=== PATIENT | male | born 1965 | race Caucasian/White ===

== ENCOUNTER 2017-09-10 18:19 | Inpatient (IN) | payer OTHER ==
[~2017-09-10] VITALS: Ht 188 cm; Wt 86.0 kg
[2017-09-10] VITALS (12 sets, daily range): BP systolic 110–124; BP diastolic 68–79; PULSE 76–95; RESP 16; TEMP 98–98.4; O2SAT 97–100
[2017-09-10] MEDS ORDERED: HEPARIN SODIUM - IV 10,000 UNITS/10 ML VIAL IV PUSH STA (18:28)
[2017-09-10] MEDS ORDERED: SODIUM CHLOR 0.9% 1000 ML INJ 1,000 ML IV ONE (18:28)
[2017-09-10] MEDS ORDERED: SODIUM CHLORIDE 0.9% FLUSH 10 ML FLUSH IVF PRN (18:30)
--- NOTE | 2017-09-10 18:35 | RADRPT ---
EXAM DATE/TIME: 09/10/2017 18:23 [facility] COMPARISON: No previous studies available for comparison. INDICATIONS : Stemi alert; syncopal episode. MEDICAL HISTORY : Unobtainable. SURGICAL HISTORY : Unobtainable. ENCOUNTER: Initial ACUITY: 1 day PAIN SCORE: 0/10 LOCATION: Bilateral chest FINDINGS: A single view of the chest demonstrates the lungs to be symmetrically aerated without evidence of mas s, infiltrate or effusion. The cardiomediastinal contours are unremarkable. Osseous structures are intact. CONCLUSION: No acute disease. Bart Martines MD on September 10, 2017 at 18:33 Board Certified Radiologist. This report was verified electronically.
[2017-09-10] MEDS ORDERED: ASPIRIN 81 MG CHEW TAB ONE (18:42)
[2017-09-10] MEDS ORDERED: HEPARIN SODIUM - IV 10,000 UNITS/10 ML VIAL ONE (18:42)
--- NOTE | 2017-09-10 18:45 | PD ---
HPI Chief Complaint: STEMI Alert Time Seen by Provider: 18:28 Travel History International Travel<30 days: No Contact w/Intl Traveler<30days: No Traveled to known affect area: No History of Present Illness HPI 52-year-old male with no significant past medical history, presents here via EMS as a STEMI alert. The patient apparently was at a restaurant when he began feeling lightheaded and passed out. The patient reportedly was unconscious for roughly 40 seconds. There is no reported seizure activity. He was incontinent to urine. The patient has no cardiac history. He had no complaints of chest pain. He states that he sensed himself getting lightheaded and the next thing he remembers was waking up. The patient was awake and alert and appropriate upon waking. There is no reported postictal state. When paramedics arrived at the scene, they did a 12-lead which showed ST elevation in the inferior leads. They did a V4 are which was negative for acute ST elevation. STEMI alert was called in the field. We activated the STEMI alert prior to their arrival. PFSH Past Medical History Diminished Hearing: No Past Surgical History Appendectomy: Yes Social History Alcohol Use: Yes (DAILY) Tobacco Use: No Substance Use: No Allergies-Medications (Allergen,Severity, Reaction): Coded Allergies: No Known Allergies (Unverified , 09/10/17) Reported Meds & Prescriptions Reported Meds & Active Scripts Active No Active Prescriptions or Reported Medications Review of Systems Except as stated in HPI: all other systems reviewed are Neg General / Constitutional: No: Fever, Chills HENT: No: Headaches, Neck Pain Cardiovascular: No: Chest Pain or Discomfort Respiratory: No: Cough, Shortness of Breath Gastrointestinal: No: Nausea, Vomiting, Abdominal Pain Genitourinary: Positive: Incontinence Musculoskeletal: No: Weakness, Pain Neurologic: Positive: Syncope, Incontinence, No: Weakness, Dizziness, Headache , Change in Mentation, Seizures Psychiatric: No: Substance Abuse Physical Exam Narrative GENERAL: Well-developed well-nourished male in no acute respiratory distress. She does appear to have sunburn to his chest abdomen legs. SKIN: Focused skin assessment warm/dry. HEAD: Atraumatic. Normocephalic. EYES: Pupils equal and round. No scleral icterus. No injection or drainage. ENT: No nasal bleeding or discharge. Mucous membranes pink and moist. NECK: Trachea midline. No JVD. Supple. CARDIOVASCULAR: Regular rate and rhythm. No murmur appreciated. RESPIRATORY: No accessory muscle use. Clear to auscultation. Breath sounds equal bilaterally. GASTROINTESTINAL: Abdomen soft, non-tender, nondistended. Hepatic and splenic margins not palpable. MUSCULOSKELETAL: No obvious deformities. No clubbing. No cyanosis. No edema. NEUROLOGICAL: Awake and alert. No obvious cranial nerve deficits. Motor grossly within normal limits. Normal speech. Data Data Last Documented VS Vital Signs Date Time Temp Pulse Resp B/P (MAP) Pulse Ox O2 Delivery O2 Flow Rate FiO2 09/10/17 18:24 98.0 84 16 116/69 (85) 99 Orders Orders Troponin I (09/10/17 18:) Ckmb (Isoenzyme) Profile (09/10/17 18:) Complete Blood Count With Diff (09/10/17:) I-Stat Profile (09/10/17 18:) I-Stat Creatinine (09/10/17:) Calcium (09/10/17:) Magnesium (Mg) (09/10/17 18:28) Prothrombin Time / Inr (Pt) (09/10/17 18:28) Act Partial Throm Time (Ptt) (09/10/17 18:28) B-Type Natriuretic Peptide (09/10/17 18:) Chest, Single Ap (09/10/17 18:28) Electrocardiogram (09/10/17 18:28) Oxygen Administration (09/10/17 18:28) Iv Access Insert/Monitor (09/10/17:) Oximetry (09/10/17 18:28) Sodium Chlor 0.9% 1000 Ml Inj (Ns 1000 M (09/10/17 18:28) Sodium Chloride 0.9% Flush (Ns Flush) (09/10/17 18:30) Heparin Inj (Heparin Inj) (09/10/17 18:28) Admit Order (Ed Use Only) (09/10/17 18:31) Drug Screen, Random Urine (09/10/17 18:32) MDM Medical Decision Making Medical Screen Exam Complete: Yes Emergency Medical Condition: Yes Differential Diagnosis STEMI versus syncope versus dehydration versus metabolic derangement Narrative Course 52-year-old male with no significant past medical history, presents here after having a syncopal episode. Patient was made a STEMI alert in the field after EKG showed ST elevation in the inferior leads. Evaluation of the twelve-lead from EMS clearly shows ST elevation in leads II, III and aVF. Repeat EKG still shows slight ST elevation however it is improved from the field. The patient's has been discussed with Dr. King, on-call electrical service technician for stimulated. He is on his way in to take the patient to the [facility] Officer. Patient has been given aspirin and nitroglycerin in the field. He is also been given heparin bolus here in the emergency department. Diagnosis Primary Impression: STEMI alert Additional Impression: Syncopal episode Admitting Information Admitting Physician Requests: Admit Scripts No Active Prescriptions or Reported Meds Leopoldo Torres MD Sep 10, 2017 18:45
[2017-09-10 19:11] LABS: AUTOMATED NEUTROPHIL # 7.7 TH/MM3 (1.8-7.7); BASOPHIL # 0.1 TH/MM3 (0-0.2); BASOPHIL % 0.6 % (0.0-2.0); EOSINOPHIL # 0.1 TH/MM3 (0-0.4); HEMATOCRIT 44.2 % (39.0-51.0); HEMOGLOBIN 15.1 GM/DL (13.0-17.0); LYMPH % 13.6 % (9.0-44.0); LYMPHOCYTE # 1.3 TH/MM3 (1.0-4.8); MEAN CELL VOLUME 91.1 FL (80.0-100.0); MEAN CORPUSCULAR HEMOGLOBIN 31.1 PG (27.0-34.0); MEAN CORPUSCULAR HGB CONC 34.1 % (32.0-36.0); MONO % 6.9 % (0.0-8.0); MONOCYTE # 0.7 TH/MM3 (0-0.9); NEUT % 77.9 % (16.0-70.0); PLATELET COUNT 231 TH/MM3 (150-450); RED BLOOD COUNT 4.85 MIL/MM3 (4.50-5.90); WHITE BLOOD COUNT 9.9 TH/MM3 (4.0-11.0)
[2017-09-10] MEDS ORDERED: MIDAZOLAM HCL 2 MG/2 ML VIAL ONE (19:11)
[2017-09-10 19:15] LABS: CALCIUM 8.2 MG/DL (8.5-10.1)
[2017-09-10 19:24] LABS: PROTHROMBIN TIME - PATIENT 10.4 SEC (9.8-11.6); TROPONIN I LESS THAN 0.02 NG/ML (0.02-0.05)
[2017-09-10] MEDS ORDERED: BACITRACIN OINT 0.9 GM PKT TOP ONE (20:00)
[2017-09-10] MEDS ORDERED: SODIUM CHLORIDE 0.9% FLUSH 10 ML FLUSH IV FLUSH PRN (20:00)
[2017-09-10] MEDS ORDERED: MISC INFORMATION XX ONE (20:00)
--- NOTE | 2017-09-10 20:12 | MR ---
cc: Manfred King MD, Arthur W MD DATE: 09/10/2017 PROCEDURES: Left heart catheterization, left ventriculography and coronary angiography INDICATIONS: STEMI, dehydration, syncope bladder incontinence. PROCEDURAL STATEMENT: The patient was brought to the cardiac catheterization laboratory, prepped and draped in the usual sterile fashion. Ten mL of 1% lidocaine was used to locally anesthetize the right common femoral artery. 4 Irish sheath placed in right common femoral artery . A 4-Irish JL4 and JR4 catheters were used to perform left and right coronary arteriography and left ventriculography. FINDINGS: LV pressure is 90/8/9, ejection fraction 60%. No wall motion abnormality identified. Right coronary artery dominant. There is slight kinking in the proximal segment at the tip of the catheter. I do think this is a stenosis. I think it is just a kinked point at the catheter tip peaks at systole. The left main coronary artery has no significant disease angiographically. Left circumflex vessel has no significant disease angiographically. There is a small ramus intermedius vessel, reference vessel diameter of 0.5 mm in diameter. No significant disease angiographically. First obtuse marginal vessel has a high takeoff. It is 1.5 to 2 mm reference vessel diameter. No significant disease angiographically. The second obtuse marginal vessel comes off the mid AV groove. Left circumflex vessel is a large vessel, reference vessel diameter 4 mm, has a proximal bifurcation with no significant disease. The left main coronary artery is a large vessel, reference vessel diameter probably 7 mm. The proximal LAD has no significant disease. Proximal LAD is a large vessel, reference vessel diameter probably 6-7 mm, gives off a large first diagonal vessel with a reference vessel diameter of 3.5 mm. Beyond the first diagonal artery the LAD has a reference vessel diameter of 3.5 mm, so definitely has a stepdown from the proximal segment but appears to be a normal anatomical tapering. I do not see any appreciable plaque. The LAD is transapical. The LAD appears to have possibly some mild stenosis at the bifurcation with the first diagonal artery. It may be 10-20% versus normal vessel tapering. CONCLUSION: 1. Possible mild mid left anterior descending disease of the bifurcation with a large diagonal vessel. This may actually be just normal vessel tapering, although it does appear to be slightly stenotic compared to the more distal segment of the left anterior descending, so therefore may be a possible 20% stenosis area. Otherwise, no significant disease in a right dominant system as detailed above. 2. Hyperdynamic left ventricular systolic function, ejection fraction 65 to 70%. 3. Low left ventricular pressure is 90/8/9 consistent with dehydration. 4. Recommend fluid resuscitation. Admit overnight for observation on telemetry. 5. Further recommendations pending trends and hemodynamics, response to IV fluid challenge and telemetry findings. MD TIFFANIE Walker/ , 07:27 PM , 08:11 PM
[2017-09-10] MEDS: SODIUM CHLORIDE 0.9% FLUSH 10 ML FLUSH IV FLUSH SCH (21:00)
--- NOTE | 2017-09-10 22:32 | RADRPT ---
EXAM DATE/TIME: 09/10/2017 21:22 [facility] COMPARISON: No previous studies available for comparison. INDICATIONS : Syncope. MEDICAL HISTORY : Syncope. Possible Seizure. SURGICAL HISTORY : Appendectomy. ENCOUNTER: Initial ACUITY: 1 day PAIN SCORE: 0/10 LOCATION: Bilateral neck PEAK SYSTOLIC VELOCITIES (cm/sec): ICA/CCA RATIO: Right: 0.7 Left: 0.6 ICA: Right: 83 Left: 67 CCA: Right: 116 Left: 115 ECA: Right: 78 Left: 64 VERTEBRAL: Right: 58 antegrade Left: 60 antegrade Elevated flow velocities and ICA/CCA ratios have been found to correlate with increased degrees of vessel stenosis, calculated as percentage of diameter relative to a normal segment of distal ICA/CCA FINDINGS: RIGHT CAROTID: No significant stenosis is visualized. The waveforms are within normal limits. LEFT CAROTID: No significant stenosis is visualized. The waveforms are within normal limits. VERTEBRAL ARTERIES: Antegrade flow is seen in both vertebral arteries. MISCELLANEOUS: None. CONCLUSION: No evidence of flow-limiting carotid stenosis. Bart Martines MD on September 10, 2017 at 22:30 Board Certified Radiologist. This report was verified electronically.
[2017-09-11] VITALS (24 sets, daily range): BP systolic 102–119; BP diastolic 70–75; PULSE 64–82; RESP 16–17; TEMP 97.9–98.1; O2SAT 97–98
--- NOTE | 2017-09-11 07:42 | CATHPROC ---
[facility] HIS Report Study Information Study Number Admission Scheduled Start Study Start [id number] Sep 10 2017 6:33PM 09/10/2017 Sep 10 2017 6:54PM [facility] Catheter[facility] Admit Source Facility Department Emergency department [facility] - [employer] Physician and Clinical Staff Initial Manfred Medrano Boring And Filling Machine Operator Segundo Sargent RN Boring And Filling Machine Operator Jania Irvin RN Other cathlab, cathlab Recorder Gilberto Ortiz RCIS(BS) Scrub Zack Mcginnis RT(R) Procedures Performed Procedure Location (Site) Vessel Name Coronary Angiograms LCA Left Coronary Coronary Angiograms RCA Right Coronary LV Gram-hand inj. LV LV Ventricle Equipment Time Acid Tender Description Size Mfg Part Number Used/Scraped [id number] *[id number] *[id number] 18:56 [employer] PACK, CCL CUSTOM * Used *[id number] 18:56 Gorb PACER PEN, SKIN DUAL W/ RULER * Used *[id number] 19:31 [employer] MEDICAL 30 BARNEY INDEFLATOR Used *[id number] 19:31 ODEC SHEATH, FR6.5 PRELUDE 11CM FR 6.5 038ACT Used *[id number] 18:56 ODEC WIRE, 3MMJ .035 180CM 180CM Used *[id number] 18:56 NAMIC MANIFOLD, 4 PORT * Used *[id number] 18:56 NYCOMED OMNIPAQUE, 350 MG, 150ML 150ML [id number] 18:56 [employer] MEDICAL BLANKET,WARM AIR CCL * Used *[id number] 18:56 [email or web address] MEDICAL SHEATH, FR4 TERUMO (10CM) FR 4 Used *[id number] History: Allergies Allergy Reaction No Known Allergies History: Risk Factors Family History of Hypertension Dyslipidemia Previous AR Previous Heart Failure Premature CAD No No No No No Prior Valve Prior PCI Prior CABG Surgery No No No Cerebrovascular Peripheral Artery Chronic Lung On Dialysis Diabetes Disease Disease Disease No No No No No History: Symptoms/Diagnosis Selection Items Syncope History: Stress Tests Stress or Imaging Studies Performed No History: Other Current Smoker No Labs Hgb (g/dl) Hct (%) 11.60-17.00 35.00-51.00 15.0 44 Glucose (mg/dl) Creatinine (mg/dl) 74.00-106.00 0.50-1.30 163 1.1 Na (meq/l) K (meq/l) Cl (meq/l) 136.00-145.00 3.50-5.10 98.00-107.00 135 4.3 100 CPK-MB (ng/ML) 0.50-3.60 Not Drawn Medication Medication Total Dose (Bolus/Oral) Medication Total Dosage/Unit 1% XYLOCAINE 20 mL FENTANYL 12.5 mcg VERSED 1 mg Medications (Bolus/Oral) Medication Time Given Dosage/Unit Administered By Reason 1% XYLOCAINE 09/10/2017 7:12:36 PM 20 mL Manfred King 20 mL 1% XYLOCAINE given in lab by Manfred King in Right Groin via Subcutaneous. VERSED 09/10/2017 7:12:42 PM 1 mg Jania Irvin 1 mg VERSED given in lab by Jania Irvin RN in Left Antecubital via Peripheral IV. Ordered by Manfred Garcia. FENTANYL 09/10/2017 7:13:01 PM 12.5 mcg Jania Irvin 12.5 mcg FENTANYL given in lab by Jania Irvin RN in Left Antecubital via Peripheral IV. Ordered by Manfred King. Medication (Drip) Medication Time Given Dosage/Unit Concentration/Unit Diluent (ml) Solution IV Solutions 09/10/2017 6:58:35 PM 0 mL (IV) 500 NaCl .9 Patient arrived on IV Solutions in Left Antecubital via Peripheral IV. Pump/Drip Flow = 20 ml/hr usin g NaCl .9. Initial Case Assessment Cardiovascular HR Rhythm NIBP Chest Pain 86 nsr 122/76 0 Edema Present Skin color Skin None Normal Warm Dry Circulatory - Right Pulses Dorsalis Pedis Femoral 3 3 Scale (0,1,2,3,4,d) Circulatory - Left Pulses Dorsalis Pedis Femoral 3 3 Scale (0,1,2,3,4,d) Neurological State Oriented to time-place- Alert Moves all extremities person Respiration - General Respiration Rate SpO2 (%) (B/min) 15 91 Final Case Assessment Cardiovascular HR Rhythm NIBP Chest Pain 80 nsr 112/71 0 Edema Present Skin color Skin None Normal Warm Dry Circulatory - Right Pulses Dorsalis Pedis Femoral 3 3 Scale (0,1,2,3,4,d) Circulatory - Left Pulses Dorsalis Pedis Femoral 3 3 Scale (0,1,2,3,4,d) Neurological State Oriented to time-place- Alert Moves all extremities person Respiration - General Respiration Rate SpO2 (%) (B/min) 15 100 Chronological Log Time Study Chronological Log 18:51:20 Emergency Room notified that [employer] is ready. 18:58:20 Patient arrived via Bed. 18:58:21 Patient Name, D.O.B, / Armband Verified By R.N. 18:58:22 Consent signed by the physician and the patient and verified by the [employer] staff. 18:58:22 Pre-op and post- op instructions given; patient acknowledges understanding of instructions. 18:58:23 Verbal Stimulation=2 Physical Stimulation=2 Airway=2 Respiration=2 TOTAL=8. (0=absent, 1=li mited, 2=present) 18:58:24 Presedation assessment performed by [employer] RN. 18:58:31 Patient has been NPO for More than 6Hrs. 18:58:31 Skin Breakdown- none per patient 18:58:33 Rosette Prominences Protected 18:58:34 A # 20 IV was noted in the Antecubital (left). Grade = 0 18:58:34 A # 20 IV was noted in the Forearm (left). Grade = 0 18:58:35 Patient arrived on IV Solutions in Left Antecubital via Peripheral IV. Pump/Drip Flow = 20 ml/hr using NaCl .9. 18:58:36 History and physical on the chart or being dictated. 19:02:30 MD arrived. Vitals capture started with the following parameters, Patient=Adult, Interval=5 min, Initial Pr ntdqgu=872 mmHg, 19:04:08 Deflation Rate=5 mmHg, Cuff placed on Right Ankle 19:04:50 HR=86 bpm, RHWJ=024/76 mmhg, SpO2=90.0 %, Resp=15 B/min, Pain=0, Judson=10, [place]=2 19:05:13 Reference ECG taken Assessment: Initial Case, HR=86 BPM, Rhythm=nsr, VRBW=583/76 mmhg, Chest Pain=0, Edema=None, Co jerad=Normal, Skin = Warm, Dry Right Pulses: Braulio Ped=3, Femoral=3 19:05:25 Left Pulses: Braulio Ped=3, Femoral=3 Neurological: State=Alert, Ox3, TURNER Respiration: Resp=15 B/min, SpO2=91 % 19:05:26 Bilateral groins prepped with 2% chlorhexidine, and draped after a 3 minute waiting time. 19:06:01 Contrast Scanned 19:06:02 Immediate Presedation assesment performed by physician. 19:08:22 Pressure channel 1 zeroed. 19:09:43 HR=83 bpm, GOGJ=669/72 mmhg, WhD2=793.0 %, Resp=11 B/min, Pain=0, Judson=10, Sheffield=2 Time Out. Correct patient, correct procedure, correct physician, power injector not loaded with contrast with surgical 19:10:20 team present. Time Out Concurred by MD and individual staff in procedure. 19:10:25 Case Start 19:10:25 Verbal Stimulation=2 Physical Stimulation=2 Airway=2 Respiration=2 TOTAL=8. (0=absent, 1=li mited, 2=present) 19:12:36 20 mL 1% XYLOCAINE given in lab by Manfred King in Right Groin via Subcutaneous. 19:12:42 1 mg VERSED given in lab by Jania Irvin RN in Left Antecubital via Peripheral IV. Orde red by Manfred King. 19:12:55 Access site was Right Femoral Artery. 19:12:59 A SHEATH, FR4 TERUMO (10CM) FR 4 was advanced into the Fem Art (right) using the Percutaneo us technique. 12.5 mcg FENTANYL given in lab by Jania Irvin, ERNST in Left Antecubital via Peripheral IV. Or dered by Christine, 19:13:01 Manfred. 19:13:11 Activated Clotting Time Drawn A JR 4.0 INFINITI CATHETER FR 4 was advanced over a wire. OMNIPAQUE, 350 MG, 150ML 150ML was us ed for 19:13:20 injections. Recorded Pressure: LV, HR=88, Condition=Condition 1 19:14:21 (Left Ventricle) LV 117/-1/16 19:14:31 The LV was manually injected with 10 cc's and visualized. OMNIPAQUE, 350 MG, 150ML 150ML us ed. Recorded Pressure: LV, Ao, HR=86, Condition=Condition 1 19:14:36 (Left Ventricle) LV 105/-2/13, (Aorta) Ao 98/57/75 19:14:46 HR=84 bpm, SHCD=133/70 mmhg, SpO2=99.0 %, Resp=15 B/min, Pain=0, Judson=10, Sheffield=2 19:15:02 The RCA was injected and visualized at various angles. OMNIPAQUE, 350 MG, 150ML 150ML used . 19:15:48 Catheter was removed A JL 4.0 INFINITI CATHETER FR 4 was advanced over a wire. OMNIPAQUE, 350 MG, 150ML 150ML was us ed for 19:15:48 injections. 19:16:41 The LCA was injected and visualized at various angles. OMNIPAQUE, 350 MG, 150ML 150ML used . Recorded Pressure: Ao, HR=85, Condition=Condition 1 19:17:19 (Aorta) Ao 92/58/72 19:17:30 Catheter was removed 19:18:53 ACT (Normal Range 90-180) = 173 19:19:00 Case End Assessment: Final Case, HR=80 BPM, Rhythm=nsr, DVOM=617/71 mmhg, Chest Pain=0, Edema=None, [place] r=Normal, Skin = Warm, Dry Right Pulses: Braulio Ped=3, Femoral=3 19:19:15 Left Pulses: Braulio Ped=3, Femoral=3 Neurological: State=Alert, Ox3, TURNER Respiration: Resp=15 B/min, YkM2=446 % 19:19:43 HR=81 bpm, URPQ=309/71 mmhg, SpO2=99.0 %, Resp=15 B/min, Pain=0, Judson=10, Sheffield=2 19:22:32 Sheath removed; pressure applied to access site. 19:24:42 HR=90 bpm, TFMW=441/75 mmhg, SpO2=97.0 %, Resp=19 B/min, Pain=0, Judson=10, Sheffield=2 19:29:45 HR=83 bpm, XNYY=143/69 mmhg, SpO2=99.0 %, Resp=8 B/min 19:34:40 HR=90 bpm, VTXR=896/80 mmhg, SpO2=97.0 %, Resp=16 B/min, Pain=0, Judson=10, Sheffield=2 19:39:41 HR=86 bpm, EJYN=055/76 mmhg, SpO2=99.0 %, Resp=31 B/min, Pain=0, Judson=10, Sheffield=2 19:40:40 Sterile dressing applied to site 19:45:10 Patient moved to stretcher 19:45:50 Waiting on bed assignment End Study - Contrast Media Used In Study Contrast Total Opened (mL) Total Used (mL) Total Wasted (mL) Omnipaque 30 30 0 End Study - Maximum Contrast Load Max Contrast Load (mL) 386.4 End Study - Radiation Exposure Fluoro Time (minutes) 0.8 End Study - Sheaths Sheaths Pulled By Sheath Hold Time (min) Zack Mcginnis 18 End Study - Patient Disposition Complications Transferred To Interventional Outcome No Telemetry Bed No attempt made
--- NOTE | 2017-09-11 09:22 | MB ---
cc: Manfred King MD DATE: 09/10/2017 HISTORY OF PRESENT ILLNESS: Molina is a very pleasant 52-year-old gentleman with no significant past medical history. He was eating dinner tonight in [place] at a restaurant, felt lightheaded, had a syncopal event, was unconscious for 40 seconds approximately per report. Had bladder incontinence. No associated prodromal symptoms such as chest pain, shortness of breath, fever, chills, cough, GI/ bleeding, PND, orthopnea. He denied syncope. Currently denies chest pain or shortness of breath. EKG in the field showed concave up ST elevation in the inferior leads with no reciprocal changes. A 12-lead EKG in the ER shows a similar morphology, with slight change of the slope of the ST segments in lead 3 and aVF, more suggestive of injury pattern. Again, no reciprocal changes. PAST MEDICAL HISTORY: As per history of present illness. He does have a history of an appendectomy. SOCIAL HISTORY: He drinks alcohol daily. He denies tobacco use. ALLERGIES: NONE. MEDICATIONS: He received aspirin 324 chewable in the ER, heparin bolus drip. PHYSICAL EXAMINATION: VITAL SIGNS: Blood pressure 119/73, pulse 95, respiratory rate 16, temperature 98.0, sat is 100% on room air. GENERAL: He is alert, oriented x 3, in no acute distress. NECK: Supple. No JVD. No bruit. CARDIOVASCULAR: S1, S2. No murmurs, rubs or gallops. LUNGS: Clear to auscultation bilaterally. ABDOMEN: Soft, nontender, nondistended, with positive bowel sounds. EXTREMITIES: No extremity edema. IMAGING STUDIES: Chest x-ray shows no acute disease. STUDY: The EKG in the field shows a 1-[address] segment elevation in leads 2, 3 and aVF, concave up, with baseline wander. No reciprocal changes. A 12-lead EKG in the ER shows normal sinus rhythm at 79 beats per minute, slightly concave up. ST elevation in lead 2, more of a flat injury angulation in lead 3 aVF, not quite tombstoning about [address] elevation. Again, no reciprocal changes. LABORATORY DATA: Labs have been drawn, but results are pending at time of dictation. HE HAS THE FOLLOWING DIAGNOSES: 1. Questionable STEMI. 2. Syncope. 3. Bladder incontinence. 4. History of appendectomy. I agree with Dr. Torres that given his age and risk factors, that STEMI-Alert should be called with emergent left heart catheterization. Further recommendations based on the details of his heart catheterization. A STEMI-Alert, has been called and procedure is being done under emergent conditions. MD TIFFANIE Walker/SETH , 07:08 PM , 07:29 PM
[2017-09-11] MEDS ORDERED: IOHEXOL 350 MG/ML 50 ML BTL (for Cath Lab) OTHER ONE (09:42)
--- NOTE | 2017-09-11 13:06 | RADRPT ---
EXAM DATE/TIME: 09/11/2017 12:16 [facility] COMPARISON: No previous studies available for comparison. INDICATIONS : Pain. Neck pain. MEDICAL HISTORY : None. SURGICAL HISTORY : Appendectomy. ENCOUNTER: Initial ACUITY: 1 day PAIN SCORE: 2/10 LOCATION: Paraspinal TECHNIQUE: Multiplanar, multisequence MRI examination of the cervical spine was performed. FINDINGS: VERTEBRAE: Normal vertebral body height. Diffuse disc desiccation. Homogeneous marrow signal. ALIGNMENT: No evidence of subluxation. CORD: Normal configuration and signal. POST FOSSA: The cerebellar tonsils are normal in position. C2-C3: The thecal sac has a normal configuration. There is no evidence of disc herniation or spinal canal s tenosis. The neural foramina are patent bilaterally. C3-C4: The thecal sac has a normal configuration. There is no evidence of disc herniation or spinal canal s tenosis. The neural foramina are patent bilaterally. C4-C5: The thecal sac has a normal configuration. There is no evidence of disc herniation or spinal canal s tenosis. Minimal uncovertebral spurring. The neural foramina are patent bilaterally. C5-C6: Minimal broad-based protrusion abuts the thecal sac. No canal stenosis. Minimal uncovertebral spurrin g. The neural foramina are patent bilaterally. C6-C7: The thecal sac has a normal configuration. There is no evidence of disc herniation or spinal canal s tenosis. The neural foramina are patent bilaterally. C7-T1: The thecal sac has a normal configuration. There is no evidence of disc herniation or spinal canal s tenosis. The neural foramina are patent bilaterally. CONCLUSION: 1. Minimal broad-based protrusion C5-6. No canal stenosis. 2. Mild degenerative changes. Ramos Morris MD on September 11, 2017 at 13:01 Board Certified Radiologist. This report was verified electronically.
--- NOTE | 2017-09-11 13:28 | RADRPT ---
EXAM DATE/TIME: 09/11/2017 12:16 [place] COMPARISON: No previous studies available for comparison. INDICATIONS : Syncope. CONTRAST: 17 cc Omniscan (gadodiamide) IV MEDICAL HISTORY : None. SURGICAL HISTORY : Appendectomy. ENCOUNTER: Subsequent ACUITY: 2 day PAIN SCORE: 2/10 LOCATION: neck TECHNIQUE: Multiplanar, multisequence MRI of the brain was performed both prior to and following the administrat ion of paramagnetic contrast. FINDINGS: There is no restricted diffusion to suggest an acute ischemic event. Minimal periventricular white m atter changes are noted. Ventricular size is appropriate. There is no parenchymal hemorrhage, acute infarction or mass lesion. There are no extra-axial fluid collections appreciated Posterior fossa is unremarkable midline fourth ventricle Following intravenous administration of gadolinium there is no abnormal contrast enhancement. CONCLUSION: Negative for an acute process. Riki Kimball MD FACR on September 11, 2017 at 13:25 Board Certified Radiologist. This report was verified electronically.
--- NOTE | 2017-09-11 13:44 | MB ---
cc: Galen Ortiz MD DATE: 09/11/2017 HISTORY OF PRESENT ILLNESS: He is a 52-year-old seen in neurological consultation with syncope versus seizure. The patient came in yesterday. He was in a restaurant with family and felt lightheaded and just did not feel well, told family about it and then he passed out. When he passed out, he also lost bladder control. There was no seizure activity, though the reports that he was making an unusual noise when he was out. The patient has no medical history, he had drank 3 or 4 beers before this had happened. He is here visiting. He does not take any medications and does not see any doctors on a regular basis. 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 The neurological exam was completely normal. Reflexes 2+. He did have a left fourth and fifth finger injury and loss when he was 4 years old. ASSESSMENT: Syncope versus seizure. He was a STEMI alert and went to heart catheterization. He was incontinent, which is unusual and there was some unusual noise described by the , also raising the possibility of seizure, but the fact that he had the warnings of lightheadedness before is also more in favor of syncope. RECOMMENDATIONS: MRI brain obtained, no results yet. The patient has had some neck pain, right-sided and MRI cervical spine was unremarkable. EEG completed and I will review this. I will follow the neurological course. Thank you for asking us to assist in his care. MD ISAI Loja/MARY , 01:16 PM , 01:43 PM
--- NOTE | 2017-09-11 13:46 | PD.CARD.PN ---
Subjective Subjective Remarks alert in nad Objective Medications Current Medications Medications (Trade) Dose Ordered Sig/Farideh Route Start Time Stop Time Status Last Admin (NS Flush) 2 ml BID IV FLUSH 09/10/17 21:00 09/10/17 21:00 (NS Flush) 2 ml UNSCH PRN IV FLUSH 09/10/17 20:00 Vital Signs / I&O Vital Signs Date Time Temp Pulse Resp B/P (MAP) Pulse Ox O2 Delivery O2 Flow Rate FiO2 09/11/17 08:00 98.0 77 17 102/72 (82) 97 09/11/17 02:30 76 16 106/71 (83) 98 09/11/17 02:00 64 09/11/17 01:30 76 16 114/70 (85) 97 09/11/17 00:30 76 16 108/71 (83) 98 09/11/17 00:00 68 09/11/17 00:00 70 09/10/17 23:30 80 16 110/70 (83) 97 09/10/17 23:00 76 09/10/17 22:30 82 16 117/71 (86) 97 09/10/17 22:00 82 09/10/17 22:00 80 16 120/75 (90) 97 09/10/17 21:30 76 16 124/76 (92) 98 09/10/17 21:00 82 09/10/17 21:00 88 16 117/79 (92) 98 09/10/17 20:45 81 16 114/68 (83) 98 09/10/17 20:45 98.4 89 16 121/73 (89) 99 09/10/17 20:30 86 16 123/79 (94) 98 09/10/17 20:15 84 16 121/73 (89) 98 09/10/17 20:13 82 09/10/17 18:49 95 16 119/73 (88) 100 Room Air 09/10/17 18:24 98.0 84 16 116/69 (85) 99 I/O 09/10/17 09/10/17 09/10/17 09/11/17 09/11/17 09/11/17 06:59 14:59 22:59 06:59 14:59 22:59 Intake Total 240 ml Output Total 1750 ml Balance -1510 ml Intake Oral 240 ml Output Urine Total 1750 ml Physical Exam GENERAL: SKIN: Warm and dry. HEAD: Normocephalic. EYES: No scleral icterus. No injection or drainage. NECK: Supple, trachea midline. No JVD or lymphadenopathy. CARDIOVASCULAR: Regular rate and rhythm without murmurs, gallops, or rubs. RESPIRATORY: Breath sounds equal bilaterally. No accessory muscle use. GASTROINTESTINAL: Abdomen soft, non-tender, nondistended. MUSCULOSKELETAL: No cyanosis, or edema. BACK: Nontender without obvious deformity. No CVA tenderness. Laboratory Laboratory Tests Test 09/10/17 18:20 09/11/17 11:25 White Blood Count 9.9 TH/MM3 Red Blood Count 4.85 MIL/MM3 Hemoglobin 15.1 GM/DL Bedside Hemoglobin 15.0 G/DL Hematocrit 44.2 % Bedside Hematocrit 44.0 % Mean Corpuscular Volume 91.1 FL Mean Corpuscular Hemoglobin 31.1 PG Mean Corpuscular Hemoglobin Concent 34.1 % Red Cell Distribution Width 13.0 % Platelet Count 231 TH/MM3 Mean Platelet Volume 7.0 FL Neutrophils (%) (Auto) 77.9 % Lymphocytes (%) (Auto) 13.6 % Monocytes (%) (Auto) 6.9 % Eosinophils (%) (Auto) 1.0 % Basophils (%) (Auto) 0.6 % Neutrophils # (Auto) 7.7 TH/MM3 Lymphocytes # (Auto) 1.3 TH/MM3 Monocytes # (Auto) 0.7 TH/MM3 Eosinophils # (Auto) 0.1 TH/MM3 Basophils # (Auto) 0.1 TH/MM3 CBC Comment DIFF FINAL Differential Comment Prothrombin Time 10.4 SEC Prothromb Time International Ratio 1.0 RATIO Activated Partial Thromboplast Time 22.4 SEC Bedside Sodium 135 MMOL/L Bedside Potassium 4.3 MMOL/L Bedside Chloride 100 MMOL/L Bedside Blood Urea Nitrogen 15 MG/DL Bedside Creatinine 1.1 MG/DL Bedside Glucose 163 MG/DL Calcium Level 8.2 MG/DL Magnesium Level 2.0 MG/DL Total Creatine Kinase 93 U/L Troponin I LESS THAN 0.02 NG/ML B-Type Natriuretic Peptide 4 PG/ML D-Dimer Quantitative (PE/DVT) 0.31 MG/L FEU Vitamin B12 Level 161 PG/ML 25-Hydroxy Vitamin D Total 7.4 ng/ML Imaging Last 24 hours Impressions Cervical Spine MRI 09/11/17 0000 Signed Impressions: Service Date/Time: Monday, September 11, 2017 12:16 - CONCLUSION: 1. Minimal broad-based protrusion C5-6. No canal stenosis. 2. Mild degenerative changes. Ramos Morris MD Brain MRI 09/11/17 0000 Signed Impressions: Service Date/Time: Monday, September 11, 2017 12:16 - CONCLUSION: Negative for an acute process. Riki Kimball MD FACR Chest X-Ray 09/10/178 Signed Impressions: Service Date/Time: August 18:23 - CONCLUSION: No acute disease. Bart Martines MD Assessment and Plan Problem List: (1) Syncope ICD Codes: R55 - Syncope and collapse (2) Dehydration ICD Codes: E86.0 - Dehydration Assessment and Plan 1.) syncope - improved, associated with dehydration and bladder incontinence, cardiac w/u negative thus far; will f/u echo and neurology evaluation Manfred King MD Sep 11, 2017 13:46
[2017-09-11] MEDS ORDERED: GADODIAMIDE PF 287 MG/ML 20 ML VIAL (for RAD MRI) IV PUSH ONE (16:54)
--- NOTE | 2017-09-11 17:58 | ECHRPT ---
Indication: CVA/TIA CONCLUSIONS Normal left ventricular size. Wall thickness is normal. The left ventricular systolic function is low normal with an estimated ejection fraction in the rang e of 50- 55%. Trace mitral valve regurgitation. The pulmonary valve is not well visualized. BP: / HR: Rhythm: MEASUREMENTS (Male / Female) Normal Values Technical Quality: 2D ECHO LV Diastolic Diameter PLAX 5.0 cm 4.2 - 5.9 / 3.9 - 5.3 cm LV Systolic Diameter PLAX 4.0 cm IVS Diastolic Thickness 0.8 cm 0.6 - 1.0 / 0.6 - 0.9 cm LVPW Diastolic Thickness 0.7 cm 0.6 - 1.0 / 0.6 - 0.9 cm LV Relative Wall Thickness 0.3 M-MODE Aortic Root Diameter MM 3.3 cm AV Cusp Separation MM 2.3 cm DOPPLER Mitral E Point Velocity 71.1 cm/s TR Peak Velocity 189.0 cm/s TR Peak Gradient 14.3 mmHg FINDINGS LEFT VENTRICLE Normal left ventricular size. Wall thickness is normal. The left ventricular systolic function is low normal with an estimated ejection fraction in the rang e of 50- 55%. RIGHT VENTRICLE Normal right ventricular size and systolic function. LEFT ATRIUM The left atrial size is normal. RIGHT ATRIUM The right atrial size is normal. ATRIAL SEPTUM Normal atrial septal thickness without atrial level shunting by limited color doppler interrogation. AORTA The aortic root and proximal ascending aorta are normal in size on limited imaging. MITRAL VALVE Trace mitral valve regurgitation. AORTIC VALVE Trileaflet aortic valve. No aortic valve stenosis or regurgitation. TRICUSPID VALVE Structurally normal tricuspid valve. No tricuspid valve stenosis or regurgitation. PULMONARY VALVE The pulmonary valve is not well visualized. VESSELS The inferior vena cava is normal in size. PERICARDIUM No pericardial effusion. Gary Aleman MD (Electronically Signed) Final Date:11 September 2017 17:57
--- NOTE | 2017-09-11 18:39 | PD.CONS ---
HPI Service [facility] Hospitalists Consult Requested By Primary Care Physician Unknown Diagnoses: (1) Syncope History of Present Illness This is a 52-year-old male who is in good health and has not seen a primary care provider for 20 years. He has a visiting [place] on vacation and spent 3 hours at the [place] yesterday followed by a visit to a local restaurant where he ate lobster. During his meal he developed dizziness which led to lethargy, disturbs speech, confusion. He had numerous near syncopal episodes with at least one full syncopal episode. His overall state lasted 5-10 minutes. When he arrived in the ER he was worked up as a possible ST elevation [place] based on a EKG obtained during EMS transport. Cardiac catheterization showed no coronary artery defects. He is currently asymptomatic. He does admit to drinking 6 beers per day. He also states that he has a family history of a vitamin deficiency. Review of Systems Constitutional: DENIES: Diaphoretic episodes, Fatigue, Fever, Weight gain, Weight loss, Chills, Dizziness Eyes: DENIES: Blurred vision, Diplopia, Eye inflammation, Eye pain, Vision loss Respiratory: DENIES: Apneas, Cough, Snoring, Wheezing Cardiovascular: COMPLAINS OF: Syncope, DENIES: Chest pain, Palpitations, Dyspnea on Exertion, Lower Extremity Edema, Orthopnea Gastrointestinal: DENIES: Abdominal pain, Black stools, Bloody stools, Constipation, Diarrhea, Nausea Musculoskeletal: COMPLAINS OF: Neck pain, DENIES: Joint pain, Muscle aches, Stiffness, Joint Swelling Neurologic: DENIES: Abnormal gait, Headache, Localized weakness, Paresthesias, Seizures, Speech Problems, Tremor Psychiatric: DENIES: Anxiety, Confusion, Mood changes Past Family Social History Allergies: Coded Allergies: No Known Allergies (Unverified , 09/10/17) Past Medical History Denies any major medical problems Past Surgical History Appendectomy when he was 22 Family History Vitamin D deficiency Social History Drinks 6 beers per day Denies smoking Physical Exam Vital Signs Vital Signs Date Time Temp Pulse Resp B/P (MAP) Pulse Ox O2 Delivery O2 Flow Rate FiO2 09/11/17 16:38 98.0 70 16 114/75 (88) 98 09/11/17 08:00 98.0 77 17 102/72 (82) 97 09/11/17 07:00 71 09/11/17 02:30 76 16 106/71 (83) 98 09/11/17 02:00 64 09/11/17 01:30 76 16 114/70 (85) 97 09/11/17 00:30 76 16 108/71 (83) 98 09/11/17 00:00 68 09/11/17 00:00 70 09/10/17 23:30 80 16 110/70 (83) 97 09/10/17 23:00 76 09/10/17 22:30 82 16 117/71 (86) 97 09/10/17 22:00 82 09/10/17 22:00 80 16 120/75 (90) 97 09/10/17 21:30 76 16 124/76 (92) 98 09/10/17 21:00 82 09/10/17 21:00 88 16 117/79 (92) 98 09/10/17 20:45 81 16 114/68 (83) 98 09/10/17 20:45 98.4 89 16 121/73 (89) 99 09/10/17 20:30 86 16 123/79 (94) 98 09/10/17 20:15 84 16 121/73 (89) 98 09/10/17 20:13 82 09/10/17 18:49 95 16 119/73 (88) 100 Room Air Physical Exam GENERAL: This is a well-nourished, well-developed patient, in no apparent distress. SKIN: No rashes, ecchymoses or lesions. Cool and dry. HEAD: Atraumatic. Normocephalic. No temporal or scalp tenderness. EYES: Pupils equal round and reactive. Extraocular motions intact. No scleral icterus. No injection or drainage. ENT: Nose without bleeding, purulent drainage or septal hematoma. Throat without erythema, tonsillar hypertrophy or exudate. Uvula midline. Airway patent. NECK: Trachea midline. No JVD or lymphadenopathy. Supple, nontender, no meningeal signs. CARDIOVASCULAR: Regular rate and rhythm without murmurs, gallops, or rubs. RESPIRATORY: Clear to auscultation. Breath sounds equal bilaterally. No wheezes , rales, or rhonchi. GASTROINTESTINAL: Abdomen soft, non-tender, nondistended. No hepato-splenomegaly , or palpable masses. No guarding. MUSCULOSKELETAL: Extremities without clubbing, cyanosis, or edema. No joint tenderness, effusion, or edema noted. No calf tenderness. Negative Homans sign bilaterally. Small muscular knot in base of right neck NEUROLOGICAL: Awake and alert. Cranial nerves II through XII intact. Motor and sensory grossly within normal limits. Five out of 5 muscle strength in all muscle groups. Normal speech. Laboratory Laboratory Tests Test 09/11/17 11:25 D-Dimer Quantitative (PE/DVT) 0.31 Vitamin B12 Level 161 25-Hydroxy Vitamin D Total 7.4 Result Diagram: 09/10/17 5339 Assessment and Plan Problem List: (1) Syncope ICD Code: R55 - Syncope and collapse (2) Dehydration ICD Code: E86.0 - Dehydration Assessment and Plan Syncopal episode MRI of the brain was normal, d-dimer level was normal Positive findings include C5-6 disc herniation, vitamin D deficiency, vitamin B12 deficiency EEG results are pending Neurology consulted to assist with workup ST elevation on EKG Cardiac catheterization was negative Appreciate cardiology Vitamin D deficiency Begin p.o. vitamin D replacement DVT prophylaxis SCDs Discharge planning If EEG is negative patient may go home if neurology agrees. Mitesh Chong MD Sep 11, 2017 18:39
--- NOTE | 2017-09-11 20:04 | MG ---
cc: Galen Ortiz MD DATE OF EE09/11/2017 REQUESTING PHYSICIAN: Dr. Chong. INDICATION: An EEG was obtained on this 52-year-old patient being evaluated for syncope. DESCRIPTION: The patient is described as awake and drowsy. The EEG is showing a lot of mid-amplitude 10 per second alpha rhythms diffusely. There are low-amplitude beta rhythms. The EEG background is fairly symmetrical. There are no paroxysmal discharges. There is some drowsiness and some theta activity along with more widespread beta rhythms. Photic stimulation showed some driving response bilaterally. Hyperventilation was unremarkable. INTERPRETATION: This is a normal awake and drowsy electroencephalogram. Galen Ortiz MD OFC/KD , 07:55 PM , 08:03 PM
[2017-09-11] MEDS: CHOLECALCIFEROL (VIT D3) 5000 UNIT CAP PO SCH (21:50)
[2017-09-11] MEDS: CYANOCOBALAMIN 1,000 MCG TAB PO SCH (21:50)
[2017-09-11] MEDS: SODIUM CHLORIDE 0.9% FLUSH 10 ML FLUSH IV FLUSH SCH (21:51)
[2017-09-12] VITALS (13 sets, daily range): BP systolic 107–121; BP diastolic 72–76; PULSE 60–87; RESP 17–20; TEMP 98–98.5; O2SAT 97–99
--- NOTE | 2017-09-12 09:04 | EKG ---
Date Performed: 09/11/2017 Time Performed: 01:38:04 PTAGE: 52 years EKG: Sinus rhythm Normal ECG PREVIOUS TRACING : 09/10/2017 18.21 DOCTOR: Chris Go Interpretating Date/Time 09/12/2017 09:01:37
--- NOTE | 2017-09-12 09:13 | EKG ---
Date Performed: 09/10/2017 Time Performed: 18:21:41 PTAGE: 52 years EKG: Sinus rhythm NORMAL ECG INTERPRETATION BASED ON A DEFAULT AGE OF 41 YEARS NO PREVIOUS TRACING DOCTOR: Chris Go Interpretating Date/Time 09/12/2017 09:10:00
[2017-09-12] MEDS: CYANOCOBALAMIN 1,000 MCG TAB PO SCH (10:28)
[2017-09-12] MEDS: CHOLECALCIFEROL (VIT D3) 5000 UNIT CAP PO SCH (10:28)
[2017-09-12] MEDS: SODIUM CHLORIDE 0.9% FLUSH 10 ML FLUSH IV FLUSH SCH (10:28)
--- NOTE | 2017-09-12 10:31 | HHI.PR ---
Review/Management Daily Summary 09/12 normal neuro exam no sx recurrence eeg normal ok neuro to d/c, no anticonvulsants for now dx uncertain syncope vs seizure I discussed with pt and his , no driving till cleared later on follow with neuro as outpt in his city and possibly have 3 day eeg study Subjective Subjective Comments No acute events reported No headache Active Medications Current Medications Medications (Trade) Dose Ordered Sig/Farideh Route Start Time Stop Time Status Last Admin (NS Flush) 2 ml BID IV FLUSH 09/10/17 21:00 09/11/17 21:51 (NS Flush) 2 ml UNSCH PRN IV FLUSH 09/10/17 20:00 (Vitamin D3) 5,000 units DAILY PO 09/11/17 18:45 09/11/17 21:50 (Vitamin B12) 1,000 mcg DAILY PO 09/11/17 18:45 09/11/17 21:50 Allergies Allergies Coded Allergies No Known Allergies (Unverified09/10/17) Exam I&O / VS Vital Signs Date Time Temp Pulse Resp B/P (MAP) Pulse Ox O2 Delivery O2 Flow Rate FiO2 09/12/17 08:00 98.5 69 20 107/76 (86) 97 09/12/17 08:00 65 09/12/17 07:00 69 09/12/17 06:08 60 09/12/17 05:12 60 09/12/17 04:34 61 09/12/17 03:40 98.3 62 17 121/75 (90) 98 09/12/17 03:05 65 09/12/17 02:12 62 09/12/17 01:54 65 09/12/17 00:08 67 09/11/17 23:53 74 09/11/17 23:35 97.9 71 16 117/73 (88) 98 09/11/17 22:00 70 09/11/17 21:15 72 09/11/17 20:00 78 09/11/17 19:25 98.1 73 17 119/74 (89) 98 09/11/17 19:20 69 09/11/17 18:00 70 09/11/17 17:00 70 09/11/17 16:38 98.0 70 16 114/75 (88) 98 09/11/17 16:00 70 09/11/17 15:00 82 09/11/17 14:00 74 09/11/17 12:00 66 09/11/17 11:00 70 Objective Radiology Results Last 48 hours Impressions Cervical Spine MRI 09/11/17 0000 Signed Impressions: Service Date/Time: Monday, September 11, 2017 12:16 - CONCLUSION: 1. Minimal broad-based protrusion C5-6. No canal stenosis. 2. Mild degenerative changes. Ramos Morris MD Brain MRI 09/11/17 0000 Signed Impressions: Service Date/Time: Monday, September 11, 2017 12:16 - CONCLUSION: Negative for an acute process. Riki Kimball MD FACR Chest X-Ray 09/10/17 1828 Signed Impressions: Service Date/Time: August 18:23 - CONCLUSION: No acute disease. Bart Martines MD Micro and Labs Laboratory Tests Test 09/11/17 11:25 D-Dimer Quantitative (PE/DVT) 0.31 Vitamin B12 Level 161 25-Hydroxy Vitamin D Total 7.4 Galen Ortiz MD Sep 12, 2017 10:31
[2017-09-12] MEDS ORDERED: CHOL5000 PO (11:36)
[2017-09-12] MEDS ORDERED: VITA10002 PO (11:36)
--- NOTE | 2017-09-12 11:42 | HHI.DS ---
Discharge Summary Admission Date Sep 10, 2017 at 18:33 Discharge Date: Sep 12, 2017 Admitting Diagnosis STEMI Alert (1) Syncope ICD Code: R55 - Syncope and collapse (2) Dehydration ICD Code: E86.0 - Dehydration Procedures Heart Catheterization, 09/11/17, MRI Brain & C-spine, EEG Brief History - From Admission This is a 52-year-old male who is in good health and has not seen a primary care provider for 20 years. He has a visiting [place] on vacation and spent 3 hours at the [place] yesterday followed by a visit to a local restaurant where he ate lobster. During his meal he developed dizziness which led to lethargy, disturbs speech, confusion. He had numerous near syncopal episodes with at least one full syncopal episode. His overall state lasted 5-10 minutes. When he arrived in the ER he was worked up as a possible ST elevation [place] based on a EKG obtained during EMS transport. Cardiac catheterization showed no coronary artery defects. He is currently asymptomatic. He does admit to drinking 6 beers per day. He also states that he has a family history of a vitamin deficiency. CBC/BMP: 09/10/17 1820 Significant Findings Laboratory Tests Test 09/10/17 18:20 09/11/17 11:25 Neutrophils (%) (Auto) 77.9 % (16.0-70.0) Activated Partial Thromboplast Time 22.4 SEC (24.3-30.1) Bedside Sodium 135 MMOL/L (137-144) Bedside Chloride 100 MMOL/L (102-111) Bedside Glucose 163 MG/DL (68-110) Calcium Level 8.2 MG/DL (8.5-10.1) Troponin I LESS THAN 0.02 NG/ML Vitamin B12 Level 161 PG/ML (193-986) 25-Hydroxy Vitamin D Total 7.4 ng/ML (30-100) Hospital Course 52-year-old male with no significant medical history had a syncopal episode while eating at a restaurant following a day at the [place]. EKG during EMS transport revealed ST changes and he underwent heart catheterization which was negative. Workup was expanded for syncope included an MRI of the brain, EEG, neurology consult. Laboratory workup revealed a marked vitamin D deficiency and a moderately low vitamin B12 level. MRI of the cervical spine revealed a broad disc herniation at level C5-6. EEG was negative as well as MRI of the brain. He is stable for discharge home, he is recommended not to drive or to operate heavy machinery until further workup is completed. 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 Pt Condition on Discharge: Good Discharge Disposition: Discharge Home Discharge Time: <= 30 minutes Discharge Instructions DIET: Follow Instructions for: As Tolerated, No Restrictions Activities you can perform: Regular-No Restrictions Mitesh Chong MD Sep 12, 2017 11:42
--- NOTE | 2017-09-13 09:10 | PD.CARD.PN ---
Subjective Subjective Remarks alert in nad Objective Vital Signs / I&O GENERAL: SKIN: Warm and dry. HEAD: Normocephalic. EYES: No scleral icterus. No injection or drainage. NECK: Supple, trachea midline. No JVD or lymphadenopathy. CARDIOVASCULAR: Regular rate and rhythm without murmurs, gallops, or rubs. RESPIRATORY: Breath sounds equal bilaterally. No accessory muscle use. GASTROINTESTINAL: Abdomen soft, non-tender, nondistended. MUSCULOSKELETAL: No cyanosis, or edema. BACK: Nontender without obvious deformity. No CVA tenderness. Vital Signs Date Time Temp Pulse Resp B/P (MAP) Pulse Ox O2 Delivery O2 Flow Rate FiO2 09/12/17 11:00 98.0 74 18 119/72 (88) 99 09/12/17 11:00 81 09/12/17 10:00 79 I/O 09/12/17 09/12/17 09/12/17 09/13/17 09/13/17 09/13/17 07:00 15:00 23:00 07:00 15:00 23:00 Intake Total 480 ml Output Total 1100 ml Balance -620 ml Intake Oral 480 ml Output Urine Total 1100 ml Physical Exam GENERAL: SKIN: Warm and dry. HEAD: Normocephalic. EYES: No scleral icterus. No injection or drainage. NECK: Supple, trachea midline. No JVD or lymphadenopathy. CARDIOVASCULAR: Regular rate and rhythm without murmurs, gallops, or rubs. RESPIRATORY: Breath sounds equal bilaterally. No accessory muscle use. GASTROINTESTINAL: Abdomen soft, non-tender, nondistended. MUSCULOSKELETAL: No cyanosis, or edema. BACK: Nontender without obvious deformity. No CVA tenderness. Assessment and Plan Problem List: (1) Syncope ICD Codes: R55 - Syncope and collapse (2) Dehydration ICD Codes: E86.0 - Dehydration Assessment and Plan 1.) syncope - improved, associated with dehydration and bladder incontinence, cardiac w/u negative thus far; echo wnl, ok to dc from cv standpoint, patient seen 09/12/17 Manfred King MD Sep 13, 2017 09:10
== END 2017-09-12 12:31 | disposition home or self-care (01) | DRG 287 ==
LOC: NEPE 18:19 → NEDA 18:33 → HCIS 20:08
PROVIDERS: ADMIT Family Medicine; ATTEND Family Medicine
PROC: 4A023N7 Measurement of Cardiac Sampling and Pressure, Left Heart, Percutaneous Approach (ICD-10-PCS; principal; 2017-09-10)
PROC: B2111ZZ Fluoroscopy of Multiple Coronary Arteries using Low Osmolar Contrast (ICD-10-PCS; 2017-09-10)
PROC: B2151ZZ Fluoroscopy of Left Heart using Low Osmolar Contrast (ICD-10-PCS; 2017-09-10)
DX: R55 Syncope and collapse (principal); M50.222 Other cervical disc displacement at C5-C6 level; E86.0 Dehydration; E53.8 Deficiency of other specified B group vitamins; E55.9 Vitamin D deficiency, unspecified; R94.31 Abnormal electrocardiogram [ECG] [EKG]; R32 Unspecified urinary incontinence
CPT/HCPCS: 70553; 71045; 72141; 80048; 82306; 82310; 82550; 82607; 83735; 83880; 84484; 85002; 85025; 85379; 85610; 85730; 93005; 93306; 93458; 93880; 95819; 99152; A9579; C1769; C1893; J1644; J2250; J3010; J7030; Q9967